=== PATIENT | male | born 1960 | race Caucasian/White ===

== ENCOUNTER 2021-12-22 14:38 | Outpatient (RCR) | payer MEDICARE ==
[~2021-12-22 14:38] MED LIST: AMLODIPINE BESY10 MG PO; ASPIRIN325 MG PO; ATORVASTATIN CA20 MG PO; CHROMIUM PICO400 MCG PO; CINNAMON500 MG PO; CLOPIDOGREL75 MG PO; CRESTOR20 MG PO; DEXILANT60 MG PO; DHEA TABLET1 EACH PO; ECHINACEA400 MG PO; ESTER-C 500 MG1 EACH PO; FUROSEMIDE40 MG PO; GABAPENTIN300 MG PO; HYDROCHLOROTHIA25 MG PO; INVOKANA100 MG PO; ISOSORBIDE MONO20 MG PO; JANUVIA100 MG PO; JUICE PLUS ORCHARD PO; LISINOPRIL10 MG PO; MEGA; METFORMIN HCL500 MG PO; METOPROLOL SUCC50 MG PO; METOPROLOL TART50 MG PO; NAPROXEN250 MG PO; NIACIN500 M2 PO; NOVOLIN N100 UNIT/1 SC; NOVOLIN R100 UNIT/1 SC; PIOGLITAZONE HC45 MG PO; SUPER B COMPLE150 MG PO; TART CHERRY CA1 EACH PO; TRAJENTA PO; diltiazem PO; fenofibrate PO; multivitamin PO; pantoprazole PO
== END 2021-12-26 ==
LOC: RESP 14:38
DX: J44.9 Chronic obstructive pulmonary disease, unspecified (principal)
CPT/HCPCS: 94799

== ENCOUNTER 2022-08-23 14:22 | Observation (INO) | payer MEDICARE ==
[~2022-08-23] VITALS: Ht 185.4 cm; Wt 117.9 kg
[2022-08-23] MEDS ORDERED: KETOROLAC TROMETHAMINE 30 MG/ML VIAL IV ONE (15:00)
[2022-08-23] MEDS ORDERED: KETOROLAC TROMETHAMINE 30 MG/ML VIAL ONE (15:00)
[2022-08-23] MEDS ORDERED: SODIUM CHLORIDE FLUSH 10 ML SYR INJ PRN (18:00)
[2022-08-23] MEDS ORDERED: ONDANSETRON HCL INJ 2MG/ML 2ML 2 MG/ML VIAL IV PRN (18:00)
[2022-08-23] MEDS ORDERED: ACETAMINOPHEN 325 MG TAB PO PRN (18:00)
[2022-08-23 18:22] VITALS: PULSE 76; RESP 18; O2SAT 96
[2022-08-23] MEDS ORDERED: NAPROXEN250 MG PO (19:08)
[2022-08-23] MEDS ORDERED: CLOPIDOGREL75 MG PO (19:08)
[2022-08-23] MEDS ORDERED: CARVEDILOL25 MG (19:08)
[2022-08-23] MEDS ORDERED: POTASSIUM CITR10 MEQ PO (19:08)
[2022-08-23] MEDS ORDERED: NITROGLYCERIN0.4 MG SL (19:08)
[2022-08-23] MEDS ORDERED: BERBERINE COMPLEX PO (19:08)
[2022-08-23] MEDS ORDERED: COQ1050 MG PO (19:08)
[2022-08-23] MEDS ORDERED: VICTOZA 2-0.6 MG/0.1 (19:08)
[2022-08-23] MEDS ORDERED: CINNAMON500 MG (19:08)
[2022-08-23] MEDS ORDERED: NIACIN ER500 MG PO (19:08)
[2022-08-23] MEDS ORDERED: DHA FROM ALGAE200 MG PO (19:08)
[2022-08-23] MEDS ORDERED: VASCEPA1 GM PO (19:08)
[2022-08-23] MEDS ORDERED: CHROMIUM PICO400 MCG PO (19:08)
[2022-08-23] MEDS ORDERED: STIOLTO RESPIMAT4 GM (19:08)
[2022-08-23] MEDS ORDERED: FARXIGA10 MG (19:08)
[2022-08-23] MEDS ORDERED: HYDRALAZINE HCL50 MG PO (19:08)
[2022-08-23] MEDS ORDERED: RANOLAZINE ER500 MG (19:08)
[2022-08-23] MEDS ORDERED: TRICOR145 MG PO (19:08)
[2022-08-23 19:30] VITALS: BP 138/72; PULSE 71; RESP 18; TEMP 97.9; O2SAT 93
[2022-08-23 20:00] VITALS: BP 138/72; PULSE 71; RESP 20; TEMP 97.9; O2SAT 93
[2022-08-24] VITALS: BP 135/68; PULSE 72; RESP 18; TEMP 97.7; O2SAT 92
[2022-08-24 04:00] VITALS: BP 124/54; PULSE 67; RESP 20; TEMP 97.8; O2SAT 93
[2022-08-24 05:50] LABS: BASOPHILS # (AUTO) 0.1 (0.0-0.1); BASOPHILS % 1.4 % (0.0-1.0); EOSINOPHILS # (AUTO) 0.5 (0.0-0.4); EOSINOPHILS % 9.1 % (0.0-6.0); HEMOGLOBIN 13.7 g/dL (14.0-18.0); LYMPHOCYTES # (AUTO) 1.6 (1.0-3.2); MEAN CORPUSCULAR HEMOGLOBIN 26.6 pg (28-32); MEAN CORPUSCULAR HGB CONC 31.1 g/dL (31-35); MEAN CORPUSCULAR VOLUME 85.3 fL (81-99); MONOCYTES # (AUTO) 0.5 (0.2-0.8); MONOCYTES % 9.3 % (4.4-11.3); NEUTROPHILS # (AUTO) 2.4 (2.1-6.9); NEUTROPHILS % 47.8 % (38.7-80.0); PLATELET COUNT 231 x10e3/uL (140-360); RED BLOOD COUNT 5.16 x10e6/uL (4.3-5.7); RED CELL DISTRIBUTION WIDTH 16.1 % (11.7-14.4)
[2022-08-24 06:09] LABS: ANION GAP 16.8 mmol/L (8-16); CALCIUM 8.6 mg/dL (8.4-10.2); CREATININE, SERUM 2.61 mg/dL (0.72-1.25); POTASSIUM 3.8 mmol/L (3.5-5.1)
[2022-08-24 07:34] VITALS: BP 145/75; PULSE 66; RESP 18; TEMP 97.7; O2SAT 95
[2022-08-24 08:45] VITALS: BP 145/75; PULSE 66; RESP 18; TEMP 97.7; O2SAT 95
== END 2022-08-24 10:28 | disposition home or self-care (01) ==
LOC: FSED 14:29 → ERHOLD 17:58 → MED/SURG2 19:36
PROVIDERS: ADMIT Internal Medicine; ATTEND Internal Medicine
DX: N20.0 Calculus of kidney (principal); E11.22 Type 2 diabetes mellitus with diabetic chronic kidney disease; I12.9 Hypertensive chronic kidney disease with stage 1 through stage 4 chronic kidney disease, or unspecified chronic kidney disease; N18.4 Chronic kidney disease, stage 4 (severe); N28.1 Cyst of kidney, acquired; E66.01 Morbid (severe) obesity due to excess calories; E87.6 Hypokalemia; D64.9 Anemia, unspecified; G47.30 Sleep apnea, unspecified; I25.10 Atherosclerotic heart disease of native coronary artery without angina pectoris; J44.9 Chronic obstructive pulmonary disease, unspecified; I25.2 Old myocardial infarction; M51.36 Other intervertebral disc degeneration, lumbar region; I73.9 Peripheral vascular disease, unspecified; Z20.822 Contact with and (suspected) exposure to COVID-19; Z88.6 Allergy status to analgesic agent; Z79.82 Long term (current) use of aspirin; Z79.02 Long term (current) use of antithrombotics/antiplatelets; Z79.4 Long term (current) use of insulin; Z79.85 Long-term (current) use of injectable non-insulin antidiabetic drugs; Z79.899 Other long term (current) drug therapy; Z86.73 Personal history of transient ischemic attack (TIA), and cerebral infarction without residual deficits; Z95.5 Presence of coronary angioplasty implant and graft; Z87.891 Personal history of nicotine dependence
CPT/HCPCS: 0223U; 36415 ×2; 71046; 74176; 80048 ×2; 81003; 82550; 82553; 82948 ×2; 84484; 85025 ×2; 93005; 94799; 96374; 99284; G0378 ×2; J1885